=== PATIENT | female | born 1945 | race Caucasian/White ===

== ENCOUNTER 2021-10-31 15:22 | Emergency (ER) | payer MEDICARE, OTHER ==
[~2021-10-31] VITALS: Ht 170.2 cm; Wt 72.0 kg
[2021-10-31] MEDS ORDERED: IOHEXOL 350 MG/ML 100 ML VIAL. ONE (15:32)
[2021-10-31] MEDS ORDERED: ASPIRIN ENTERIC COATED 325 MG TABLET.DR. PO ONE (15:45)
[2021-10-31 16:08] LABS: CREATININE 1.4 mg/dL (0.6-1.0); GFR 36.6; POTASSIUM 3.6 mmol/L (3.5-5.1)
--- NOTE | 2021-10-31 16:08 | EKG ---
[address] [address] Test Date: 2021-10-31 Test Time: 15:41:52 Pat Name: MUSA ESQUIVEL Department: Room: Gender: F Crystalizer: RONNIE : 1945 Requested By: STEVE PERRY Order Number: [id number] Reading MD: Elia Randolph Measurements Intervals [place] Rate: 68 P: 0 OK: 160 QRS: -49 QRSD: 104 T: 41 QT: 412 QTc: 443 Interpretive Statements SINUS RHYTHM ABNORMAL LEFT AXIS DEVIATION QRS(T) CONTOUR ABNORMALITY CONSISTENT WITH INFERIOR INFARCT PROBABLY OLD Electronically Signed On 11-02-2021 15:05:39 [employer] by Elia Randolph
[2021-10-31 16:09] LABS: BASO # 0.1 x10^3/uL (0.0-0.2); BASO % 3 % (0-3); EOS # 0.1 x10^3/uL (0.0-0.7); EOS % 3 % (0-3); HEMATOCRIT 34.3 % (36.0-47.0); HEMOGLOBIN 11.8 g/dL (12.0-15.5); LYMPH # 0.7 x10^3/uL (1.0-4.8); LYMPH % 27 % (24-48); MEAN CORPUSCULAR HEMOGLOBIN 37 pg (25-35); MEAN CORPUSCULAR HGB CONC 34 g/dL (31-37); MEAN CORPUSCULAR VOLUME 108 fL (79-100); MONO # 0.2 x10^3/uL (0.0-1.1); MONO % 8 % (0-9); NEUT # 1.6 x10^3uL (1.8-7.7); NEUT % 58 % (31-73); PLATELET COUNT 148 x10^3/uL (140-400); RED BLOOD COUNT 3.17 x10^6/uL (3.50-5.40); RED CELL DISTRIBUTION WIDTH 13.8 % (11.5-14.5); WHITE BLOOD COUNT 2.7 x10^3/uL (4.0-11.0)
--- NOTE | 2021-10-31 16:13 | RAD ---
EXAMINATION: CT STROKE HEAD W/O CLINICAL HISTORY: Right upper and lower extremity weakness. Code stroke. TECHNIQUE: Serial axial images without IV contrast were obtained from the vertex to the foramen magnu m. Artificial intelligence software analysis also performed utilizing [employer]. CT Dose Reduction Employed: One or more of the following individualized dose reduction techniques wer e utilized for this examination: 1. Automated exposure control 2. Adjustment of the mA and/or kV ac cording to patient size 3. Use of iterative reconstruction technique. COMPARISON: None FINDINGS: Acute Change: Small region of increased cortical density in the anterolateral left frontal lobe with subjacent white matter hypoattenuation attenuation, possibly related to petechial hemorrhage with cer ebral edema are remote infarct with encephalomalacia and cortical calcification. Mass Lesion/Mass Effect: No evidence of intracranial mass or extraaxial fluid collection. No signific ant mass effect. Chronic Change: Small area of encephalomalacia in the left occipital lobe, likely related to remote i nfarct. Scattered patchy foci of hypoattenuation in the supratentorial white matter, nonspecific but likely represents mild microvascular ischemia. Atherosclerotic calcification of the anterior and post erior circulation. Parenchyma: Moderate generalized volume loss. Ventricles: Ventricular enlargement concordant with degree of parenchymal volume loss. Paranasal Sinuses and Skull Base: Visualized paranasal sinuses clear. Visualized skull base and soft tissues unremarkable. IMPRESSION: Nonspecific cortical density in the left frontal lobe as described, cannot exclude mild petechial hem orrhage but alternatively this may represent calcification related to remote infarct. Clinical correl ation and follow-up MRI is recommended for further evaluation. Remote left occipital infarct and chronic white matter microvascular ischemic changes. Findings discussed with STEVE PERRY MD at 10/31/2021 4:01 PM. Electronically signed by: Jorden Mena DO (10/31/2021 4:11 PM) [id number]
[2021-10-31 16:17] LABS: ALBUMIN 4.1 g/dL (3.4-5.0); ALBUMIN/GLOBULIN RATIO 1.4 (1.0-1.7); CALCIUM 8.9 mg/dL (8.5-10.1); MAGNESIUM 1.8 mg/dL (1.8-2.4); TOTAL BILIRUBIN 0.3 mg/dL (0.2-1.0)
--- NOTE | 2021-10-31 16:38 | RAD ---
Exam: CTA head and neck INDICATION: Right upper and lower extremity weakness TECHNIQUE: Sequential axial images through the head and neck obtained following the administration of 100 mL of Isovue 370 IV contrast. Sagittal and coronal reformatted images were reconstructed from th e axial data and reviewed. 3-D reformatted images were reconstructed from the axial data and reviewed . Exposure: One or more of the following in the visualized dose reduction techniques were utilized for this examination: 1. Automated exposure control 2. Adjustment of the MA and/or KV according to patient size 3. Use of iterative of reconstructive technique Comparisons: CT head without contrast same day FINDINGS: CTA NECK: Visualized portions of the thoracic aorta are unremarkable. Standard three-vessel aortic arch anatomy . Right common carotid artery is patent without evidence of stenosis, occlusion or aneurysm. Mild plaqu e at the origin of the right internal carotid artery without significant stenosis. Left common carotid artery is patent without evidence of stenosis, occlusion or aneurysm. Minimal andrea cified plaque at the origin of the left internal carotid artery without significant stenosis. Right vertebral artery is patent to the basilar confluence without evidence of stenosis, occlusion or aneurysm. Left vertebral artery is patent to basilar confluence without evidence of stenosis, occlusion or aneu rysm. Visualized paraspinal soft tissues are unremarkable. CTA HEAD: Mild calcified plaque at the cavernous segment of the right internal carotid artery without significa nt stenosis. Right MCA is patent. Right KARLOS is patent. Mild calcified plaque at the cavernous segment left internal carotid artery without stenosis stenosis . No large vessel occlusion of the left MCA. There is an area of apparent cut off at the distal M3 an terior division of the left MCA of the left MCA seen on series 7 image 184/871. Left KARLOS is patent. Mild calcified plaque cavernous segment of the basilar artery without significant stenosis. envelope sealer are patent bilaterally. Visual is portions of the dural venous sinuses are patent. IMPRESSION: 1. No large vessel occlusion. 2. Apparent cut off at the distal M3 branch of the anterior division of the left MCA is described ab ove. This may be a chronic finding. 3. Mild calcified plaque at the cavernous segment of the internal carotid arteries bilaterally. 4. Mild calcified plaque cavernous segment of the right internal carotid artery without significant stenosis. FOR INTERNAL CODING PURPOSES Critical result: Findings discussed with STEVE PERRY MD at 10/31/2021 4:22 PM. RESULT CODE: (C) Electronically signed by: Hema Powers MD (10/31/2021 4:36 PM) AL[facility]ONSO
[2021-10-31] MEDS ORDERED: IV NORMAL SALINE 500ML 500 ML IV ONE (16:45)
--- NOTE | 2021-10-31 17:26 | PHYS DOC ---
Past History Additional Past Medical Histor: BREAST CANCER (STEVE PERRY MD) Past Surgical History: Other Additional Past Surgical Histo: RIGHT MASTECTOMY (STEVE PERRY MD) General Adult EDM: Chief Complaint: NEURO SYMPTOMS/DEFICITS HPI: HPI: Patient is a 75-year-old female coming in private vehicle for possible stroke. Patient states that at 1450 she was trying to get her keys off of a shelf when she was unable to pick them up and therefore onto her hand. She also then had lower extremity weakness and she was try to lower herself to the ground but ended up falling, denies any injury. Patient has any headaches or slurred speech. Patient has multiple comorbidities including breast cancer receiving chemotherapy. On arrival brief bedside neuro exam demonstrates right upper and lower extremity weakness, no cranial deficits. No slurred speech. (STEVE PERRY MD) Review of Systems: Review of Systems: All other systems within normal limits except for as noted in the HPI (STEVE PERRY MD) Current Medications: Current Meds: Current Medications Medications (Trade) Dose Ordered Sig/B[place]ly Start Time Stop Time Status Last Admin Dose Admin Aspirin (Aspirin Enteric Coated) 325 mg 1X ONCE 10/31/21 15:45 10/31/21 15:46 DC Iohexol (Omnipaque 350 Mg/ml) 100 ml STK-MED ONCE 10/31/21 15:32 10/31/21 15:33 DC Sodium Chloride 500 ml @ 0 mls/hr 1X ONCE 10/31/21 16:45 10/31/21 16:48 DC (STEVE PERRY MD) Allergies: Allergies: Allergies Coded Allergies Type Severity Reaction Last Updated Verified No Known Drug Allergies 10/31/21 No (STEVE PERRY MD) Physical Exam: PE: Constitutional: Well developed, well nourished, no acute distress, non-toxic appearance. [] HENT: Normocephalic, atraumatic, bilateral external ears normal, nose normal. [] Eyes: PERRLA, conjunctiva normal, no discharge. [] Neck: No rigidity, supple, no stridor. [] Cardiovascular: Regular rate and rhythm, brisk cap refill [] Lungs & Thorax: Non labored symmetric respirations, no tachypnea or respiratory distress [] Abdomen: Soft, nondistended. Skin: Warm, dry, no erythema, no rash. [] Back: Unremarkable Extremities: No deformities, range of motion grossly intact, no lower extremity edema [] Neurologic: Alert and oriented X 3, no cranial nerve deficit, right upper extremity 4 out of 5 proximally and 3 out of 5 distally, right lower extremity 4 out of 5, left upper and lower extremity 5 out of 5. Decreased sensation right upper extremity Psychologic: Affect normal, judgement normal, mood normal. [] (STEVE PERRY MD) Current Patient Data: Labs: Laboratory Tests Test 10/31/21 15:32 10/31/21 15:38 Glucose (Fingerstick) 129 mg/dL (70-99) H White Blood Count 2.7 x10^3/uL (4.0-11.0) L Red Blood Count 3.17 x10^6/uL (3.50-5.40) L Hemoglobin 11.8 g/dL (12.0-15.5) L Hematocrit 34.3 % (36.0-47.0) L Mean Corpuscular Volume 108 fL (79-100) H Mean Corpuscular Hemoglobin 37 pg (25-35) H Mean Corpuscular Hemoglobin Concent 34 g/dL (31-37) Red Cell Distribution Width 13.8 % (11.5-14.5) Platelet Count 148 x10^3/uL (140-400) Neutrophils (%) (Auto) 58 % (31-73) Lymphocytes (%) (Auto) 27 % (24-48) Monocytes (%) (Auto) 8 % (0-9) Eosinophils (%) (Auto) 3 % (0-3) Basophils (%) (Auto) 3 % (0-3) Neutrophils # (Auto) 1.6 x10^3uL (1.8-7.7) L Lymphocytes # (Auto) 0.7 x10^3/uL (1.0-4.8) L Monocytes # (Auto) 0.2 x10^3/uL (0.0-1.1) Eosinophils # (Auto) 0.1 x10^3/uL (0.0-0.7) Basophils # (Auto) 0.1 x10^3/uL (0.0-0.2) Prothrombin Time 10.2 SEC (9.4-11.4) Prothrombin Time INR 1.0 (0.9-1.1) Activated Partial Thromboplast Time 23 SEC (23-33) Sodium Level 141 mmol/L (136-145) Potassium Level 3.6 mmol/L (3.5-5.1) Chloride Level 104 mmol/L (98-107) Carbon Dioxide Level 26 mmol/L (21-32) Anion Gap 11 (6-14) Blood Urea Nitrogen 23 mg/dL (7-20) H Creatinine 1.4 mg/dL (0.6-1.0) H Estimated GFR (Cockcroft-Gault) 36.6 BUN/Creatinine Ratio 16 (6-20) Glucose Level 134 mg/dL (70-99) H Calcium Level 8.9 mg/dL (8.5-10.1) Phosphorus Level 4.0 mg/dL (2.6-4.7) Magnesium Level 1.8 mg/dL (1.8-2.4) Total Bilirubin 0.3 mg/dL (0.2-1.0) Aspartate Amino Transferase (AST) 23 U/L (15-37) Alanine Aminotransferase (ALT) 21 U/L (14-59) Alkaline Phosphatase 76 U/L (46-116) Troponin I High Sensitivity 21 ng/L (4-50) Total Protein 7.0 g/dL (6.4-8.2) Albumin 4.1 g/dL (3.4-5.0) Albumin/Globulin Ratio 1.4 (1.0-1.7) Vital Signs: Vital Signs Date Time Temp Pulse Resp B/P (MAP) Pulse Ox O2 Delivery O2 Flow Rate FiO2 10/31/21 15:30 98.0 64 18 143/73 (96) 96 Room Air (STEVE PERRY MD) EKG: EKG: Sinus rhythm, left axis deviation, no ST ovation depression, heart rate 68 bpm [] (STEVE PERRY MD) Radiology/Procedures: Radiology/Procedures: [address] [address] IMAGING REPORT Signed PATIENT: MUSA ESQUIVEL ACCOUNT: [id number] : 1945 LOCATION: ER AGE: 75 SEX: F EXAM STATUS: REG ER ORD. PHYSICIAN: STEVE PERRY MD REASON: right upper and lower ext weak PROCEDURE: CT ANGIOGRAPHY HEAD AND NECK Exam: CTA head and neck INDICATION: Right upper and lower extremity weakness TECHNIQUE: Sequential axial images through the head and neck obtained following the administration of 100 mL of Isovue 370 IV contrast. Sagittal and coronal reformatted images were reconstructed from the axial data and reviewed. 3-D reformatted images were reconstructed from the axial data and reviewed. Exposure: One or more of the following in the visualized dose reduction techniques were utilized for this examination: 1. Automated exposure control 2. Adjustment of the MA and/or KV according to patient size 3. Use of iterative of reconstructive technique Comparisons: CT head without contrast same day FINDINGS: CTA NECK: Visualized portions of the thoracic aorta are unremarkable. Standard three- vessel aortic arch anatomy. Right common carotid artery is patent without evidence of stenosis, occlusion or aneurysm. Mild plaque at the origin of the right internal carotid artery without significant stenosis. Left common carotid artery is patent without evidence of stenosis, occlusion or aneurysm. Minimal calcified plaque at the origin of the left internal carotid artery without significant stenosis. Right vertebral artery is patent to the basilar confluence without evidence of stenosis, occlusion or aneurysm. Left vertebral artery is patent to basilar confluence without evidence of stenosis, occlusion or aneurysm. Visualized paraspinal soft tissues are unremarkable. CTA HEAD: Mild calcified plaque at the cavernous segment of the right internal carotid artery without significant stenosis. Right MCA is patent. Right KARLOS is patent. Mild calcified plaque at the cavernous segment left internal carotid artery without stenosis stenosis. No large vessel occlusion of the left MCA. There is an area of apparent cut off at the distal M3 anterior division of the left MCA of the left MCA seen on series 7 image 184/871. Left KARLOS is patent. Mild calcified plaque cavernous segment of the basilar artery without significant stenosis. manager supplier are patent bilaterally. Visual is portions of the dural venous sinuses are patent. IMPRESSION: 1. No large vessel occlusion. 2. Apparent cut off at the distal M3 branch of the anterior division of the left MCA is described above. This may be a chronic finding. 3. Mild calcified plaque at the cavernous segment of the internal carotid arteries bilaterally. 4. Mild calcified plaque cavernous segment of the right internal carotid artery without significant stenosis. FOR INTERNAL CODING PURPOSES Critical result: Findings discussed with STEVE PERRY MD at 10/31/2021 4:22 PM. RESULT CODE: (C) Electronically signed by: Hema Stewart MD (10/31/2021 4:36 PM) [facility] DICTATED AND SIGNED BY: HEMA STEWART MD DATE: 10/31/21 1616 CC: STEVE PERRY MD; PCP,NO ~MTH0 0 [][place] [address] IMAGING REPORT Signed PATIENT: MUSA ESQUIVEL ACCOUNT: [id number] : 1945 LOCATION: ER AGE: 75 SEX: F EXAM STATUS: REG ER ORD. PHYSICIAN: STEVE PERRY MD REASON: right upper and lower ext weak PROCEDURE: CT CODE STROKE HEAD WO EXAMINATION: CT STROKE HEAD W/O CLINICAL HISTORY: Right upper and lower extremity weakness. Code stroke. TECHNIQUE: Serial axial images without IV contrast were obtained from the vertex to the foramen magnum. Artificial intelligence software analysis also performed utilizing [employer]. CT Dose Reduction Employed: One or more of the following individualized dose reduction techniques were utilized for this examination: 1. Automated exposure control 2. Adjustment of the mA and/or kV according to patient size 3. Use of iterative reconstruction technique. COMPARISON: None FINDINGS: Acute Change: Small region of increased cortical density in the anterolateral left frontal lobe with subjacent white matter hypoattenuation attenuation, possibly related to petechial hemorrhage with cerebral edema are remote infarct with encephalomalacia and cortical calcification. Mass Lesion/Mass Effect: No evidence of intracranial mass or extraaxial fluid collection. No significant mass effect. Chronic Change: Small area of encephalomalacia in the left occipital lobe, likely related to remote infarct. Scattered patchy foci of hypoattenuation in the supratentorial white matter, nonspecific but likely represents mild microvascular ischemia. Atherosclerotic calcification of the anterior and posterior circulation. Parenchyma: Moderate generalized volume loss. Ventricles: Ventricular enlargement concordant with degree of parenchymal volume loss. Paranasal Sinuses and Skull Base: Visualized paranasal sinuses clear. Visualized skull base and soft tissues unremarkable. IMPRESSION: Nonspecific cortical density in the left frontal lobe as described, cannot exclude mild petechial hemorrhage but alternatively this may represent calcification related to remote infarct. Clinical correlation and follow-up MRI is recommended for further evaluation. Remote left occipital infarct and chronic white matter microvascular ischemic changes. Findings discussed with STEVE PERRY MD at 10/31/2021 4:01 PM. Electronically signed by: Jorden Zuniga DO (10/31/2021 4:11 PM) [id number] DICTATED AND SIGNED BY: JORDEN ZUNIGA DO DATE: 10/31/211551 CC: STEVE PERRY MD; PCP,NO ~MTH0 0 (STEVE PERRY MD) Heart Score: C/O Chest Pain: No Risk Factors: Risk Factors: DM, Current or recent (<one month) smoker, HTN, HLP, family hist ory of CAD, obesity. Risk Scores: Score 0 - 3: 2.5% MACE over next 6 weeks - Discharge Home Score 4 - 6: 20.3% MACE over next 6 weeks - Admit for Clinical Observation Score 7 - 10: 72.7% MACE over next 6 weeks - Early Invasive Strategies (STEVE PERRY MD) Course & Med Decision Making: Course & Med Decision Making Pertinent Labs and Imaging studies reviewed. (See chart for details) Patient gives most of her treatments through [facility]'s system, consult the transfer line and spoke with Dr. Reich as well as there neurologists and neuro interventionalists. [facility], pending transport at shift change. [] (STEVE PERRY MD) Dragon Disclaimer: Dragon Disclaimer: This electronic medical record was generated, in whole or in part, using a voice recognition dictation system. (STEVE PERRY MD) Attending Co-Sign The patient was seen and interviewed as well as examined at the bedside. The chart was reviewed. The case was discussed. Agree with the plan of care. (VICKI BARAJAS DO) Departure Departure: Impression: Primary Impression: TIA (transient ischemic attack) Disposition: 02 SHORT TERM HOSPITAL Condition: GUARDED Referrals: PCP,NO (PCP) STEVE PERRY MD Oct 31, 2021 17:26 VICKI BARAJAS DO Nov 01, 2021 14:41
[2021-10-31 18:14] VITALS: BP 150/82
== END 2021-10-31 18:44 | disposition short-term general hospital (02) ==
LOC: ER 15:22
DX: G45.9 Transient cerebral ischemic attack, unspecified (principal); Z20.822 Contact with and (suspected) exposure to COVID-19
CPT/HCPCS: 36415; 70450; 70496; 70498; 80053; 82947; 83735; 84100; 84484; 85025; 85610; 85730; 87426; 93005; 99285; C9803; J7040; U0003